=== PATIENT | male | born 1985 | race Caucasian/White ===

== ENCOUNTER 2023-03-21 02:33 | Emergency (ER) | payer SELFPAY ==
[~2023-03-21] VITALS: Ht 165.1 cm; Wt 120.2 kg
--- NOTE | 2023-03-21 02:50 | NUR ---
seen and examined by Carlos
[2023-03-21 02:52] VITALS: BP 96/48; PULSE 102; RESP 20; TEMP 98; O2SAT 98
--- NOTE | 2023-03-21 02:57 | NUR ---
PT. WALKED TO XRAY
[2023-03-21] MEDS ORDERED: LID5T TP (03:45)
[2023-03-21 03:50] VITALS: BP 107/62; RESP 16; O2SAT 98
--- NOTE | 2023-03-21 04:09 | NUR ---
Patient discharged with v/s stable. Written and verbal after care instructions given and explained. Patient verbalized understanding. Ambulatory with in custody. All questions addressed prior to discharge. Advised to follow up with PMD.
== END 2023-03-21 04:04 ==
LOC: MED 02:33
DX: S20.212A Contusion of left front wall of thorax, initial encounter (principal); Z79.899 Other long term (current) drug therapy; V49.88XA Car occupant (driver) (passenger) injured in other specified transport accidents, initial encounter; Y93.89 Activity, other specified; Y92.89 Other specified places as the place of occurrence of the external cause; Y99.8 Other external cause status
CPT/HCPCS: 71045; 93005; 99283